=== PATIENT | male | born 1975 | race Caucasian/White ===

== ENCOUNTER 2018-01-12 01:12 | Emergency (ER) | payer BC ==
[2018-01-12] MEDS: diphenhydrAMINE HCL 25 MG CAPSULE PO (02:27)
[2018-01-12] MEDS: CLINDAMYCIN HCL 150 MG CAPSULE. PO (02:27)
== END 2018-01-12 02:30 | disposition home or self-care (01) ==
LOC: ER 01:12
DX: T63.461A Toxic effect of venom of wasps, accidental (unintentional), initial encounter (principal); L03.114 Cellulitis of left upper limb; G89.29 Other chronic pain; Z88.2 Allergy status to sulfonamides; Z88.8 Allergy status to other drugs, medicaments and biological substances
CPT/HCPCS: 99283; Q0163